=== PATIENT | male | born 1980 | race Caucasian/White ===

== ENCOUNTER 2018-09-13 02:57 | Inpatient (IN) ==
[2018-09-13] MEDS ORDERED: Naloxone Inj 0.4 MG/ML Vial ONE (03:14)
[2018-09-13] MEDS ORDERED: Naloxone Inj 2 MG/2 ML Vial ONE (03:18)
--- NOTE | 2018-09-13 03:26 | ED ---
HPI General Chief Complaint: Overdose Stated Complaint: Medical Time Seen by Provider: 09/13/18 03:22 Source: EMS Mode of arrival: EMS Limitations: altered mental status History of Present Illness HPI Narrative: 38-year-old male came to the emergency room brought in by EMS after he was found in his car unresponsive outside a gas station. He had a rolled dollar bill and some powder substance laying around him and over his face. Patient was GCS of 3 and was blue. He was given 2 mg of IV Narcan which brought him up to GCS of 12. As per the paramedics the oxygen saturation was 60 % initially. When brought in patient had his eyes open but not talking much. As per the commercial center manager he was nonverbal the entire transportation. The substance snorted is unknown at this point. Patient is not a reliable historian. Related Data Home Medications Medication Instructions Recorded Confirmed Unable to Obtain Home Meds 09/13/18 09/13/18 Allergies Allergy/AdvReac Type Severity Reaction Status Date / Time No Known Allergies Allergy Verified 09/13/18 03:04 Review of Systems ROS Unobtainable ROS Unobtainable: unobtainable due to mental status PMFSH History History Provided By: Trench Pipe Layer Helper / EMT Medical History Medical History Medical history unknown (Acute) Social History Social History Substance History: Active Abuse Second Hand Smoke Exposure: Yes Smoking Status: Current every day smoker Tobacco Type: Cigarettes How Often Do You Have a Drink Containing Alcohol: Monthly or less Recent Travel in [facility] within the Last 8 Weeks: No Recent Out of Country Travel within the Last 8 Weeks: No Exam Narrative Exam Narrative: GENERAL: Altered mental status, covered intact to, disheveled SKIN: Focused skin assessment warm/dry. Covered in tattoo, disheveled HEAD: Atraumatic. Normocephalic. EYES: Pupils equal and round. No scleral icterus. No injection or drainage. ENT: No nasal bleeding or discharge. Mucous membranes pink and moist. NECK: Trachea midline. No JVD. CARDIOVASCULAR: Regular rate and rhythm. No murmur appreciated. RESPIRATORY: No accessory muscle use. Clear to auscultation. Breath sounds equal bilaterally. GASTROINTESTINAL: Abdomen soft, non-tender, nondistended. Hepatic and splenic margins not palpable. MUSCULOSKELETAL: No obvious deformities. No clubbing. No cyanosis. No edema. NEUROLOGICAL: GCS of 12, nonverbal PSYCHIATRIC: Unable to assess Course Initial Documented Vital Signs Temperature 98.5 F 09/13/18 03:05 Pulse Rate 128 H 09/13/18 03:05 Respiratory Rate 22 09/13/18 03:05 Blood Pressure 118/81 09/13/18 03:05 Pulse Oximetry 99 09/13/18 03:05 Last Documented Vital Signs Temperature 98.5 F 09/13/18 03:05 Pulse Rate 132 H 09/13/18 03:09 Respiratory Rate 18 09/13/18 03:09 Blood Pressure 118/81 09/13/18 03:09 Pulse Oximetry 100 09/13/18 03:27 Critical Care Time Critical Care Time: Yes Total Critical Care Time: 45 Attestation: Aggregate critical care time was 45 minutes. Time to perform other separately billable procedures was not included in the critical care time. My time did not include minutes spent treating any other patients simultaneously or on activities that did not directly contribute to the patient's treatment. The services I provided to this patient were to treat and/or prevent clinically significant deterioration that could result in: Altered mental status, metabolic acidosis, leukocytosis, heroin overdose I provided critical care services requiring my management, as noted below: Chart data review, documentation time, medication orders and management, vital sign assessments/reviewing monitor data, ordering and reviewing lab tests, ordering and interpreting/reviewing x-rays and diagnostic studies, care of the patient and discussion of the patient with the admitting physicians. Medical Decision Making MDM Narrative Medical decision making narrative: 4:19 AM patient was given 1 mg of Narcan IV in the ER. After that he started to have some shakes and GCS went up to 13. Patient continued after that to be lethargic and still nonverbal. I asked for an ABG. After reviewing the ABG I went back and spoke with him. After asking him questions repeatedly patient finally started to talk and said that he does not remember much or how he got to the gas station. He did not remember the day but knows that it is September in 2019. He says that the last thing he remembers was getting paid Saturday afternoon and then going to get heroin. This was at 1:30 PM. He does not remember anything since then. He says that last time he used heroin was a long time back. Last time he IV drug abuse was a long time back as well. Blood gas was metabolic acidosis but patient says that he did not do any other drugs. He drank 1 pint of vodka. Initially I had decided to intubate him given his GCS but once he started to talk and answer questions I decided to hold off on that. He is maintaining his airway.. Medical Screen Exam Complete: Yes Emergency Medical Condition: Yes Lab Data Result diagrams: 09/13/18 03:45 09/13/18 03:45 Lab Results 09/13/18 09/13/18 09/13/18 Range/Units 03:45 03:45 03:45 WBC 24.4 H (4.0-11.0) th/mm3 RBC 4.91 (4.50-5.90) mil/mm3 Hgb 15.3 (13.0-17.0) gm/dL Hct 45.7 (39.0-51.0) % MCV 93.1 (80.0-100.0) fL MCH 31.1 (27.0-34.0) pg MCHC 33.4 (32.0-36.0) % RDW 14.0 (11.6-17.2) % Plt Count 179 (150-450) th/mm3 MPV 11.1 H (7.0-11.0) fL Neut % (Auto) 82.3 H (16.0-70.0) % Lymph % (Auto) 13.3 (9.0-44.0) % Morrow % (Auto) 4.0 (0.0-8.0) % Eos % (Auto) 0.1 (0.0-4.0) % Baso % (Auto) 0.3 (0.0-2.0) % Neut # (Auto) 20.0 H (1.8-7.7) th/mm3 Lymph # (Auto) 3.2 (1.0-4.8) th/mm3 Morrow # (Auto) 1.0 H (0.0-0.9) th/mm3 Eos # (Auto) 0.0 (0.0-0.4) th/mm3 Baso # (Auto) 0.1 (0.0-0.2) th/mm3 WBC Differential . Differential Comment Auto diff final Puncture Site Right radial Patient Temperature 98.6 O2 Saturation 92 (90-100) % ABG pH 7.22 L* (7.380-7.420) ABG pCO2 35 L (38-42) mmHg ABG pO2 113 (61-120) mmHg ABG HCO3 14 L* (22-26) mmol/L ABG O2 Content 19.2 (12.0-20.0) Vol % ABG Base Excess -12.3 L (-2-2) mmol/L ABG Methemoglobin 0.8 (0-2) % Hair Test Present Hemoglobin 14.7 (12.0-16.0) G/DL Carboxyhemoglobin 5.2 H* (0-4) % O2 Delivery Device Nasal cannula Liter Flow 3.00 L/M Critical Value Yes Sodium 146 H (136-145) meq/L Potassium 4.4 (3.5-5.1) meq/L Chloride 109 H (98-107) meq/L Carbon Dioxide 21.6 (21.0-32.0) meq/L Anion Gap 15 (5-15) meq/L BUN 10 (7-18) mg/dL Creatinine 1.95 H (0.60-1.30) mg/dL Estimated GFR 38 L (>89) mL/min Random Glucose 130 H (74-106) mg/dL Calcium 8.1 L (8.5-10.1) mg/dL Total Bilirubin 0.3 (0.2-1.0) mg/dL AST 916 H (15-37) U/L ALT 506 H (12-78) U/L Alkaline Phosphatase 94 (45-117) U/L Troponin I Less than 0.02 L (0.02-0.05) ng/mL Total Protein 7.6 (6.4-8.2) g/dL Albumin 3.6 (3.4-5.0) g/dL Serum Alcohol 40 H (0-5) mg/dL Imaging Data Radiologist's impression: Head CT 09/13/18 03:27 CONCLUSION: No acute intracranial abnormality is identified. . ECG Data Attestation: I personally reviewed and interpreted this ECG as follows: Interpretation: Twelve-lead EKG was reviewed by me. Normal sinus rhythm, normal axis, tachycardia, interventricular conduction delay. Heart rate of 137 bpm. Discharge Plan Discharge Disposition Patient Disposition: ED Admit(ED Internal Use Only) Discharge Order Discharge Orders: ED Use Only Admit Order (Routine); Ordered 09/13/18 Ordered By: Shravanti Tena Physicians Team ED Provider: Giovany Madsen Primary Care Provider: Primary Care Ana Hightower Attending Provider: Claudio Zuleta Discharge Interventions Interventions: Vital Signs Last Done: 09/13/18 03:09 Status ED Status: Admitted Patient
[2018-09-13] MEDS ORDERED: Sod Chloride 0.9% Inj 1,000 ML IV.SIG ONE (03:27)
[2018-09-13 04:09] LABS: ABG Base Excess -12.3 mmol/L (-2-2); ABG PCO2 35 mmHg (38-42); ABG PO2 113 mmHg (61-120)
[2018-09-13 04:13] LABS: Baso # (Auto) 0.1 th/mm3 (0.0-0.2); Baso % (Auto) 0.3 % (0.0-2.0); Eos % (Auto) 0.1 % (0.0-4.0); Hematocrit 45.7 % (39.0-51.0); Hemoglobin 15.3 gm/dL (13.0-17.0); Lymph # (Auto) 3.2 th/mm3 (1.0-4.8); Lymph % (Auto) 13.3 % (9.0-44.0); Mean Corpuscular HGB Conc 33.4 % (32.0-36.0); Mean Corpuscular Hemoglobin 31.1 pg (27.0-34.0); Mean Corpuscular Volume 93.1 fL (80.0-100.0); Mean Platelet Volume 11.1 fL (7.0-11.0); Neut % (Auto) 82.3 % (16.0-70.0); Platelet Count 179 th/mm3 (150-450); Red Blood Count 4.91 mil/mm3 (4.50-5.90); White Blood Count 24.4 th/mm3 (4.0-11.0)
[2018-09-13] MEDS ORDERED: Temazepam 15 MG Capsule PO PRN (04:35)
[2018-09-13] MEDS ORDERED: Bisacodyl 10 MG Supp RECTAL PRN (04:35)
--- NOTE | 2018-09-13 04:38 | P.HPCC ---
History of Present Illness Primary Care Physician: No Primary Care Physician History of Present Illness: 38-year-old male came to the emergency room brought in by EMS after he was found in his car unresponsive outside a gas station. He had a rolled dollar bill and some powder substance laying around him and over his face. Patient was GCS of 3 and was blue. He was given 2 mg of IV Narcan which brought him up to GCS of 12. As per the paramedics the oxygen saturation was 60% initially. When brought in patient had his eyes open but not talking much. As per the real property evaluator he was nonverbal the entire transportation. The substance snorted is unknown at this point. Patient is not a reliable historian. Review of Systems All other systems reviewed negative except as stated in HPI, unobtainable due to mental condition PMFSH - History History Provided By: Kayak Maker / EMT - Medical History Medical History: Medical History (Last Updated 09/13/18 @ 03:08 by Raissa Anderson) Medical history unknown - Tobacco History Second Hand Smoke Exposure: Yes Tobacco Use In Past 30 Days: Yes Smoking Status: Current every day smoker Tobacco Type: Cigarettes - Alcohol History How Often Do You Have a Drink Containing Alcohol: Monthly or less - Substance Use History Substance History: Active Abuse - Substance Use Type Heroin Status: Active Route Used: Inhalation Reason for Use: Calm Down - Travel History Recent Travel in the [place] Within the Last 8 Weeks: No Recent Travel Out of the Country Within the Last 8 Weeks: No - Immunization History Tetanus Immunization: Unsure Medications and Allergies Active Medications: Active Medications Sodium Chloride (Ns Flush) 2 ml IV.FLUSH PRN PRN PRN Reason: FLUSH AFTER USING IV ACCESS Allergies Allergy/AdvReac Type Severity Reaction Status Date / Time No Known Allergies Allergy Verified 09/13/18 03:04 Home Medications Medication Instructions Recorded Confirmed Type Unable to Obtain Home Meds 09/13/18 09/13/18 History Results - Labs CBC & Chem 7: 09/13/18 03:45 09/13/18 03:45 Labs: Short CBC 09/13/18 Range/Units 03:45 WBC 24.4 H (4.0-11.0) th/mm3 Hgb 15.3 (13.0-17.0) gm/dL Hct 45.7 (39.0-51.0) % Plt Count 179 (150-450) th/mm3 Exam Vital signs: Vital Signs 09/13/18 03:05 09/13/18 03:09 Temperature 98.5 F Pulse Rate 128 H 132 H Respiratory Rate 22 18 Blood Pressure 118/81 118/81 Pulse Oximetry 99 Intake & Output 09/12/18 09/12/18 09/13/18 06:59 18:59 06:59 Weight 90.718 kg - Constitutional no acute distress - Routine HEENT Exam Head: Present: normocephalic, atraumatic Eye: Present: PERRL ENT: Present: mucous membranes moist - Routine Neck Exam Present: supple, full ROM. Absent: JVD, carotid bruit - Routine Respiratory Exam Absent: accessory muscle use, wheezes, crackles - Routine Cardiovascular Exam Present: RRR, S1, S2 - Routine Abdominal Exam Present: soft, normoactive bowel sounds - Routine Extremities Exam Absent: cyanosis, clubbing, edema - Routine Skin Exam Present: intact. Absent: cyanosis, erythema - Routine Neurological Exam Present: alert, altered mental status, moving all extremities Septic Shock Reassessment Septic shock perfusion: reassessment completed Caprini VTE Risk Assessment Caprini VTE Risk Assessment: Moderate/High Risk (score >= 2) Caprini Risk Assessment Model: Point Value = 1 Point Value = 2 Point Value = 3 Point Value = 5 Age 41-60 Minor surgery BMI > 25 kg/m2 Swollen legs Varicose veins or History of unexplained or recurrent spontaneous Oral contraceptives or hormone replacement Sepsis (< 1 month) Serious lung disease, including pneumonia (< 1 month) Abnormal pulmonary function Acute myocardial infarction Congestive heart failure (< 1 month) History of inflammatory bowel disease Medical patient at bed rest Age 61-74 Arthroscopic surgery Major open surgery (> 45 min) Laparoscopic surgery (> 45 min) Malignancy Confined to bed (> 72 hours) Immobilizing plaster cast Central venous access Age >= 75 History of VTE Family history of VTE Factor V Leiden Prothrombin [id number] Lupus anticoagulant Anticardiolipin antibodies Elevated serum homocysteine Heparin-induced thrombocytopenia Other congenital or acquired thrombophilia Stroke (< 1 month) Elective arthroplasty Hip, pelvis, or leg fracture Acute spinal cord injury (< 1 month) Prophylaxis Regimen: Total Risk Factor Score Risk Level Prophylaxis Regimen 0-1 Low Early ambulation 2 Moderate Order ONE of the following: *Sequential Compression Device (SCD) *Heparin 5000 units SQ BID 3-4 Higher Order ONE of the following medications: *Heparin 5000 units SQ TID *Enoxaparin/Lovenox 40 mg SQ daily (WT < 150 kg, CrCl > 30 mL/min) *Enoxaparin/Lovenox 30 mg SQ daily (WT < 150 kg, CrCl > 10-29 mL/min) *Enoxaparin/Lovenox 30 mg SQ BID (WT < 150 kg, CrCl > 30 mL/min) AND/OR *Sequential Compression Device (SCD) 5 or more Highest Order ONE of the following medications: *Heparin 5000 units SQ TID (Preferred with Epidurals) *Enoxaparin/Lovenox 40 mg SQ daily (WT < 150 kg, CrCl > 30 mL/min) *Enoxaparin/Lovenox 30 mg SQ daily (WT < 150 kg, CrCl > 10-29 mL/min) *Enoxaparin/Lovenox 30 mg SQ BID (WT < 150 kg, CrCl > 30 mL/min) AND *Sequential Compression Device (SCD) Assessment and Plan - Assessment and Plan Plan: Altered mental status -Heroin intoxication -Improving mentation -Admit to ICU -Neurochecks per unit protocol -Monitor and airway protection -Monitor for withdrawal Metabolic acidosis -Non-anion gap -Some alcohol intoxication -Dehydration -Lactic acid pending -IV fluid hydration Acute kidney injury -Severe dehydration -IV fluid replacement -Strict I's and O's -Monitor electrolytes and creatinine level Transaminitis -Monitor trend -Likely hypotensive and hypoxemic event -Hepatitis panel DVT GI prophylaxis -Teds SCDs -Subcu heparin -Pepcid Level 2
[2018-09-13 04:46] LABS: Alanine Aminotransferase 506 U/L (12-78); Albumin 3.6 g/dL (3.4-5.0); Alkaline Phosphatase 94 U/L (45-117); Anion Gap 15 meq/L (5-15); Aspartate Aminotransferase 916 U/L (15-37); Blood Urea Nitrogen 10 mg/dL (7-18); Calcium 8.1 mg/dL (8.5-10.1); Carbon Dioxide 21.6 meq/L (21.0-32.0); Chloride 109 meq/L (98-107); Glomerular Filtration Rate 38 mL/min (>89); Glucose,Random 130 mg/dL (74-106); Potassium 4.4 meq/L (3.5-5.1); Sodium 146 meq/L (136-145); Total Protein 7.6 g/dL (6.4-8.2)
[2018-09-13 04:47] LABS: Alcohol 40 mg/dL (0-5)
[2018-09-13] MEDS ORDERED: Sod Chloride 0.9% Inj 1,000 ML IV.SIG SCH ×2 (05:00→06:30)
[2018-09-13] MEDS: Sod Chloride 0.9% Inj 1,000 ML IV.CONT SCH ×4 (05:00→21:34)
--- NOTE | 2018-09-13 05:16 | CT ---
EXAM DATE: 09/13/2018 4:54 AM EST AGE/SEX: 38 years / Male INDICATIONS: Altered mental status; possible overdose. CLINICAL DATA: This is the patient's initial encounter. Patient reports that signs and symptoms have been present for 1 day and indicates a pain score of Nonresponsive. MEDICAL/SURGICAL HISTORY: None. None. RADIATION DOSE: 56.35 CTDI (mGy) COMPARISON: No prior exams available for comparison. TECHNIQUE: CT of the head without contrast. Using automated exposure control and adjustment of the mA and/or kV according to patient size, radiation dose was kept as low as reasonably achievable to ob tain optimal diagnostic quality images. DICOM format image data is available electronically for revi ew and comparison. FINDINGS: Cerebrum: The ventricles are normal. No midline shift, mass lesion, hemorrhage or acute infarction. No extraaxial fluid collections are seen. Posterior Fossa: The cerebellum and brainstem demonstrate no acute abnormality. The 4th ventricle is midline. The cerebellopontine angle is within normal limits. Extracranial: The visualized sinuses are clear. Skull: The calvaria is intact. No skull fracture. CONCLUSION: No acute intracranial abnormality is identified. . Electronically signed by: Chino Gardner MD Board Certified Radiologist 09/13/2018 5:15 AM EST
[2018-09-13] MEDS: Heparin - SQ 10,000 UNITS/ML Vial SQ SCH ×3 (05:30→20:10)
[2018-09-13 05:51] LABS: Troponin I 0.09 ng/mL (0.02-0.05)
[2018-09-13 06:04] LABS: CKMB Percent 1.6 % (0.0-4.0); Creatine Kinase MB 8.8 ng/mL (0.5-3.6)
[2018-09-13] MEDS ORDERED: Vancomycin Inj 1,000 MG in Sodium Chlor 0.9% Inj 250 ML IV.SIG ONE (06:18)
[2018-09-13] MEDS ORDERED: Naloxone Inj 0.4 MG/ML Vial IV.PUSH ONE (06:23)
[2018-09-13] MEDS ORDERED: Naloxone Inj 2 MG/2 ML Vial IV.PUSH ONE (06:24)
[2018-09-13] MEDS ORDERED: Piperacil/Tazo 4.5 GM Premix 4.5 GM/100 ML BAG IV.SIG SCH (06:30)
[2018-09-13] MEDS: Senna/Docusate Sodium 8.6/50 MG Tablet PO SCH ×2 (11:05→20:09)
[2018-09-13] MEDS: Famotidine PF Inj 20 MG/2 ML Vial IV.PUSH SCH ×2 (11:05→20:09)
[2018-09-13 13:21] LABS: Hepatitis A IgM Antibody Nonreactive (Nonreactive)
[2018-09-13 13:22] LABS: Hepatitits B Surface Antigen Nonreactive (Nonreactive)
[2018-09-13] MEDS ORDERED: Influenza (Quadrivalent) Vaccine 0.5 ML Syringe IM ONE (15:00)
[2018-09-13] MEDS: Acetaminophen 325 MG Tablet PO PRN (20:08)
[2018-09-14] MEDS: Sod Chloride 0.9% Inj 1,000 ML IV.CONT SCH ×4 (02:43→19:59)
[2018-09-14] MEDS ORDERED: Chlorhexidine Gluconate 2% 1 Pack (2 Cloths) TOPICAL PRN (04:00)
[2018-09-14] MEDS: Heparin - SQ 10,000 UNITS/ML Vial SQ SCH ×3 (04:03→20:00)
[2018-09-14] MEDS: Chlorhexidine Gluconate 2% 1 Pack (2 Cloths) TOPICAL SCH (04:03)
[2018-09-14 05:22] LABS: Baso % (Auto) 0.2 % (0.0-2.0); Eos % (Auto) 0.4 % (0.0-4.0); Hematocrit 36.7 % (39.0-51.0); Hemoglobin 12.5 gm/dL (13.0-17.0); Lymph # (Auto) 1.6 th/mm3 (1.0-4.8); Lymph % (Auto) 23.1 % (9.0-44.0); Mean Corpuscular Hemoglobin 31.1 pg (27.0-34.0); Mean Corpuscular Volume 91.3 fL (80.0-100.0); Mean Platelet Volume 10.7 fL (7.0-11.0); Mono # (Auto) 0.4 th/mm3 (0.0-0.9); Mono % (Auto) 5.4 % (0.0-8.0); Neut % (Auto) 70.9 % (16.0-70.0); Platelet Count 104 th/mm3 (150-450); Red Blood Count 4.01 mil/mm3 (4.50-5.90); Red Cell Distribution Width 13.7 % (11.6-17.2)
[2018-09-14 05:24] LABS: INR 1.1 Ratio; Prothrombin Time 11.5 sec (9.8-11.6)
[2018-09-14 05:57] LABS: Albumin 2.7 g/dL (3.4-5.0); Calcium 7.4 mg/dL (8.5-10.1); Carbon Dioxide 23.5 meq/L (21.0-32.0); Phosphorus 1.9 mg/dL (2.5-4.9); Potassium 3.2 meq/L (3.5-5.1); Total Protein 5.4 g/dL (6.4-8.2)
[2018-09-14] MEDS: Acetaminophen 325 MG Tablet PO PRN (08:40)
[2018-09-14] MEDS: Famotidine PF Inj 20 MG/2 ML Vial IV.PUSH SCH ×2 (08:40→20:00)
[2018-09-14] MEDS: Senna/Docusate Sodium 8.6/50 MG Tablet PO SCH ×2 (08:44→20:01)
--- NOTE | 2018-09-14 10:52 | P.PNIM ---
Subjective Interval history: Discussed with RN. Patient still requires simple mask for hypoxemia. He reports nasal congestion otherwise he is feeling okay. Physical Exam Vital signs: Vital Signs 09/13/18 11:00 09/13/18 11:57 09/13/18 12:00 Temperature Pulse Rate 83 79 80 Respiratory Rate 11 L 19 Blood Pressure 112/67 109/58 L Pulse Oximetry 94 L 96 09/13/18 13:00 09/13/18 13:01 09/13/18 14:00 Temperature Pulse Rate 81 80 83 Respiratory Rate 18 21 21 Blood Pressure 102/50 L 102/60 Pulse Oximetry 90 L 88 L 96 09/13/18 15:00 09/13/18 15:47 09/13/18 16:00 Temperature 99 F Pulse Rate 80 81 88 Respiratory Rate 14 21 Blood Pressure 118/68 109/59 L Pulse Oximetry 95 81 L 09/13/18 16:54 09/13/18 17:00 09/13/18 17:54 Temperature Pulse Rate 81 83 81 Respiratory Rate 17 Blood Pressure 112/67 Pulse Oximetry 09/13/18 18:00 09/13/18 19:00 09/13/18 20:00 Temperature Pulse Rate 82 84 87 Respiratory Rate 17 15 15 Blood Pressure 120/70 111/62 114/57 L Pulse Oximetry 86 L 92 L 95 09/13/18 21:00 09/13/18 22:00 09/13/18 23:00 Temperature Pulse Rate 79 77 80 Respiratory Rate 24 21 13 Blood Pressure 119/63 120/67 111/57 L Pulse Oximetry 90 L 84 L 94 L 09/14/18 00:00 09/14/18 01:00 09/14/18 02:00 Temperature Pulse Rate 68 74 72 Respiratory Rate 16 18 11 L Blood Pressure 107/53 L 98/48 L 121/62 Pulse Oximetry 92 L 93 L 93 L 09/14/18 03:00 09/14/18 03:47 09/14/18 04:00 Temperature Pulse Rate 69 79 Respiratory Rate 19 19 Blood Pressure 125/63 Pulse Oximetry 92 L 95 94 L 09/14/18 05:00 09/14/18 06:00 09/14/18 07:00 Temperature Pulse Rate 72 74 75 Respiratory Rate 14 18 16 Blood Pressure 116/63 124/73 130/72 Pulse Oximetry 93 L 91 L 94 L 09/14/18 08:00 09/14/18 08:42 09/14/18 09:00 Temperature 99.1 F Pulse Rate 79 73 Respiratory Rate 19 22 Blood Pressure 118/56 L 156/81 H Pulse Oximetry 92 L 94 L 96 09/14/18 10:00 Temperature Pulse Rate 75 Respiratory Rate Blood Pressure Pulse Oximetry Intake & Output 09/13/18 09/14/18 09/14/18 18:59 06:59 18:59 Intake Total 1650 / 1650 2600 / 2600 1000 / 1000 Output Total 450 / 450 1350 / 1350 Balance 1200 / 1200 1250 / 1250 1000 / 1000 Weight 113 kg Intake: IV 1000 / 1000 1999 / 1999 1000 / 1000 NS Inj 1,000 ML @ 184 mls/hr IV 1000 / 1000 1999 / 1999 1000 / 1000 .CONT .[id number] TYLER Rx#:[id number] Oral 650 / 650 600 / 600 Output: Urine 450 / 450 1350 / 1350 Other: # Voids 2 Date of Last Bowel Movement 09/12/18 # Bowel Movements 0 Narrative: GENERAL: This is a well-nourished, well-developed patient, in no apparent distress. ENT: Bilateral turbinates inflamed. CARDIOVASCULAR: Normal rate and regular rhythm without murmurs, gallops, or rubs. RESPIRATORY: Good respiratory efforts. Breath sounds equal and clear to auscultation bilaterally. GASTROINTESTINAL: Abdomen soft, non-tender, non-distended. Normal active bowel sounds MUSCULOSKELETAL: Extremities without cyanosis, or edema. NEURO: Alert & Oriented x4 to person, place, time, situation. Moves all ext x4 PSYCH: Appropriate mood and affect. Results Labs CBC & Chem 7: 09/14/18 04:47 09/14/18 04:47 Assessment and Plan Plan 38-year-old male admitted with apparent opiate overdose. Patient also positive for alcohol. Patient was found in his car with a GCS of 3. He was given Narcan with good response. Initial oxygen saturation was in the 60s. Accidental opiate overdose: - Patient using illicit drugs and obviously had a near experience. - He was extensively counseled on cessation of illicit drug use. - Mental status is improving and is at baseline. Hypoxemia: - Could be related to lung injury from illicit drug use. -Check x-ray of the chest. -Continue supplemental oxygen -Flonase to help with nasal congestion Transaminitis: - Likely secondary to hypoxemic event. -Repeat levels in a.m. AK I: - Resolved with IV fluid Hypokalemia: Replace and monitor. GI prophylaxis: Pepcid. Stool softener PRN constipation. DVT PPx: Heparin Okay to transfer to medical floor once weaned down to nasal cannula. Anticipate discharge in the next 24-48 hours Progress Note: Quality VTE Deep Vein Thrombosis/Pulmonary Embolism Present on Admission: No
--- NOTE | 2018-09-14 14:39 | XR ---
EXAM DATE: 09/14/2018 2:31 PM EST AGE/SEX: 38 years / Male INDICATIONS: Shortness of breath. CLINICAL DATA: This is the patient's initial encounter. Patient reports that signs and symptoms have been present for 2 days and indicates a pain score of 0/10. MEDICAL/SURGICAL HISTORY: None. None. COMPARISON: No prior exams available for comparison. FINDINGS: A single AP view of the chest demonstrates the lungs to be symmetrically aerated without evidence of mass, infiltrate or effusion. The cardiomediastinal contours are unremarkable. Osseous structures a re intact. CONCLUSION: No acute cardiopulmonary process. Electronically signed by: Felix Hudson MD Board Certified Radiologist 09/14/2018 2:38 PM EST
[2018-09-14] MEDS ORDERED: LORazepam 1 MG Tablet PO ONE (22:03)
[2018-09-14 23:01] LABS: Troponin I 0.09 ng/mL (0.02-0.05)
[2018-09-14 23:13] LABS: CKMB Percent 0.8 % (0.0-4.0); Creatine Kinase MB 2.9 ng/mL (0.5-3.6)
[2018-09-15] MEDS: Chlorhexidine Gluconate 2% 1 Pack (2 Cloths) TOPICAL SCH (04:15)
[2018-09-15] MEDS: Sod Chloride 0.9% Inj 1,000 ML IV.CONT SCH (04:51)
[2018-09-15] MEDS: Heparin - SQ 10,000 UNITS/ML Vial SQ SCH ×2 (04:52→14:19)
[2018-09-15 07:15] LABS: Hematocrit 38.5 % (39.0-51.0); Hemoglobin 13.6 gm/dL (13.0-17.0); Mean Corpuscular HGB Conc 35.3 % (32.0-36.0); Mean Corpuscular Hemoglobin 31.3 pg (27.0-34.0); Mean Corpuscular Volume 88.5 fL (80.0-100.0); Mean Platelet Volume 11.5 fL (7.0-11.0); Platelet Count 114 th/mm3 (150-450); Red Blood Count 4.35 mil/mm3 (4.50-5.90); Red Cell Distribution Width 13.5 % (11.6-17.2); White Blood Count 6.2 th/mm3 (4.0-11.0)
[2018-09-15 07:42] LABS: Anion Gap 7 meq/L (5-15); Aspartate Aminotransferase 652 U/L (15-37); Blood Urea Nitrogen 4 mg/dL (7-18); Calcium 8.2 mg/dL (8.5-10.1); Carbon Dioxide 26.3 meq/L (21.0-32.0); Chloride 110 meq/L (98-107); Glomerular Filtration Rate Greater Than 89 mL/min (>89); Glucose,Random 82 mg/dL (74-106); Potassium 3.1 meq/L (3.5-5.1); Sodium 143 meq/L (136-145)
[2018-09-15 07:44] LABS: Alanine Aminotransferase 962 U/L (12-78)
[2018-09-15 07:45] LABS: Alkaline Phosphatase 69 U/L (45-117); Total Protein 5.9 g/dL (6.4-8.2)
[2018-09-15] MEDS: Famotidine PF Inj 20 MG/2 ML Vial IV.PUSH SCH (09:55)
[2018-09-15] MEDS: Senna/Docusate Sodium 8.6/50 MG Tablet PO SCH (09:55)
--- NOTE | 2018-09-15 14:57 | P.DS ---
DS: Providers Date of admission: 09/13/18 04:35 Primary care physician: No Primary Care Physician Consults: 09/13/18 17:32 Consult to Hospitalist Routine Consulting Provider: Titi Zamora Reason for Consultation: Heroin overdose Notified:: Service Spoke with:: ASHLEIGH Date Notified:: 09/13/18 Time Notified:: 17:36 Ordering Provider: NIDIA Brief History from admission: HPI as documented by the admitting physician: 38-year-old male came to the emergency room brought in by EMS after he was found in his car unresponsive outside a gas station. He had a rolled dollar bill and some powder substance laying around him and over his face. Patient was GCS of 3 and was blue. He was given 2 mg of IV Narcan which brought him up to GCS of 12. As per the paramedics the oxygen saturation was 60% initially. When brought in patient had his eyes open but not talking much. As per the press leader he was nonverbal the entire transportation. The substance snorted is unknown at this point. Patient is not a reliable historian. Patient update on day of discharge: Patient reports he is feeling well today. He was weaned off nasal cannula. His blood pressure is elevated. He reports a history of hypertension but has not been taking any medications. We discussed the need to follow-up with PCP. DS: Summary 38-year-old male admitted with apparent opiate overdose. Patient also positive for alcohol. Patient was found in his car with a GCS of 3. He was given Narcan with good response. Initial oxygen saturation was in the 60s. Evaluation and treatment course detailed below: Accidental opiate overdose: - Patient using illicit drugs and obviously had a near experience. - He was extensively counseled on cessation of illicit drug use. - Mental status is improved and at baseline. He was advised to seek outpatient rehabilitation. Hypoxemia: - Could be related to lung injury from illicit drug use. -x-ray of the chest normal. -Patient weaned off oxygen Transaminitis: - Likely shock liver secondary to hypoxemic event. -Repeat levels downtrending. Patient advised to follow-up with PCP AK I: - Resolved with IV fluid Hypokalemia: Replaced. Hypertension: Untreated. Medicine patient was started on low-dose amlodipine and advised to follow-up with PCP for further blood pressure monitoring and treatment as needed. Time Spent with Patient Total time spent providing and/or coordinating discharge services: Quality: VTE Deep Vein Thrombosis/Pulmonary Embolism Present on Admission: No Exam Narrative Exam Narrative: GENERAL: This is a well-nourished, well-developed patient, in no apparent distress. CARDIOVASCULAR: Normal rate and regular rhythm without murmurs, gallops, or rubs. RESPIRATORY: Good respiratory efforts. Breath sounds equal and clear to auscultation bilaterally. GASTROINTESTINAL: Abdomen soft, non-tender, non-distended. Normal active bowel sounds MUSCULOSKELETAL: Extremities without cyanosis, or edema. NEURO: Alert & Oriented x4 to person, place, time, situation. Moves all ext x4 PSYCH: Appropriate mood and affect. Results Labs on day of discharge: Labs from last 24 hours 09/15/18 09/15/18 09/14/18 06:07 06:07 22:27 WBC 6.2 RBC 4.35 L Hgb 13.6 Hct 38.5 L MCV 88.5 MCH 31.3 MCHC 35.3 RDW 13.5 Plt Count 114 L MPV 11.5 H Sodium 143 Potassium 3.1 L Chloride 110 H Carbon Dioxide 26.3 Anion Gap 7 BUN 4 L Creatinine 0.85 Estimated GFR Greater than 89 POC Glucose Random Glucose 82 Calcium 8.2 L D Total Bilirubin 0.9 Direct Bilirubin 0.2 Indirect Bilirubin 0.7 AST 652 H ALT 962 H Alkaline Phosphatase 69 Total Creatine Kinase 354 H CK-MB (CK-2) 2.9 CK-MB (CK-2) % 0.8 Troponin I 0.09 H Total Protein 5.9 L Albumin 3.0 L 09/14/18 20:14 WBC RBC Hgb Hct MCV MCH MCHC RDW Plt Count MPV Sodium Potassium Chloride Carbon Dioxide Anion Gap BUN Creatinine Estimated GFR POC Glucose 118 H Random Glucose Calcium Total Bilirubin Direct Bilirubin Indirect Bilirubin AST ALT Alkaline Phosphatase Total Creatine Kinase CK-MB (CK-2) CK-MB (CK-2) % Troponin I Total Protein Albumin Preliminary micro results at discharge 09/13/18 05:00 Aerobic Blood Culture - Preliminary Blood - Peripheral No growth in 2 days Anaerobic Blood Culture - Preliminary No growth in 2 days 09/13/18 04:50 Aerobic Blood Culture - Preliminary Blood - Peripheral No growth in 2 days Anaerobic Blood Culture - Preliminary No growth in 2 days Impressions ITS Impressions Head CT 09/13/18 03:27 CONCLUSION: No acute intracranial abnormality is identified. . Chest X-Ray 09/14/18 00:00 CONCLUSION: No acute cardiopulmonary process. Discharge Plan Discharge Disposition Patient Disposition: Discharge Home Discharge Condition Condition: Stable Discharge Order Discharge Orders: Discharge Order (Routine); Ordered 09/15/18 Ordered By: Sandi Webb Physicians Team Primary Care Provider: Primary Ana Khalil Attending Provider: Sandi Webb Rxs /Orders / Referrals /Forms Prescriptions: New amlodipine 5 mg tablet 5 mg PO DAILY Qty: 30 RF: 0 No Action Unable to Obtain Home Meds RF: 0 Referrals: Primary Care Ana Hightower [Primary Care Provider] - See Instructions Discharge Instructions Patient Printed Instructions: Amlodipine (By mouth) Post Discharge Care Plan Care Plan Goals: Your Health Problems: Goals to Promote Your Health: * To prevent worsening of your condition * To maintain your health at the optimal level Directions to Meet Your Goals: * Take your medications as prescribed * Follow your dietary instruction * Follow activity as directed * Keep your appointments as scheduled * Take your immunizations and boosters as scheduled * If your symptoms worsen call your PCP * If no PCP go to Urgent Care or Emergency Room Smoking is dangerous to your health. Avoid second hand smoke. You may reach the 24-hour crisis hotline for domestic abuse at . Status ED Status: Left Department Discharge Information Discharge Date/Time: 09/15/18 16:52
[2018-09-15] MEDS ORDERED: amLODIPine 5 MG Tablet PO ONE (16:13)
--- NOTE | 2018-09-15 23:23 | ECG ---
Date Performed: 09/14/2018 Time Performed: 22:18:42 PTAGE: 38 years EKG: Sinus rhythm MINIMAL VOLTAGE CRITERIA FOR LVH, CONSIDER NORMAL VARIANT BORDERLINE ECG PREVIOUS TRACING : 09/13/2018 05.26 DOCTOR: Mushtaq Randall Interpretating Date/Time 09/15/2018 23:22:35
--- NOTE | 2018-09-15 23:43 | ECG ---
Date Performed: 09/13/2018 Time Performed: 03:10:44 PTAGE: 38 years EKG: ATRIAL FIBRILLATION WITH RAPID VENTRICULAR RESPONSE MODERATE INTRAVENTRICULAR CONDUCTION DE LAY MODERATE ST DEPRESSION ABNORMAL ECG NO PREVIOUS TRACING DOCTOR: Mushtaq Randall Interpretating Date/Time 09/15/2018 23:41:56
--- NOTE | 2018-09-15 23:43 | ECG ---
Date Performed: 09/13/2018 Time Performed: 05:26:49 PTAGE: 38 years EKG: Sinus rhythm POSSIBLE LEFT VENTRICULAR HYPERTROPHY JUNCTIONAL ST DEPRESSION, CONSIDER NORMAL VARIANT ABNORMAL ECG PREVIOUS TRACING : 09/13/2018 03.10 DOCTOR: Mushtaq Randall Interpretating Date/Time 09/15/2018 23:41:14
== END 2018-09-15 16:52 | disposition home or self-care (01) | DRG 917 ==
LOC: NEPC 02:57 → NEDA 04:35 → HIMC 05:55 → N05 09-14 18:57
PROVIDERS: ADMIT Family Medicine; ATTEND Family Medicine
CPT/HCPCS: 36600; 70450; 71010; 71045; 80048; 80053; 80074; 80076; 80307; 82550; 82552; 82805; 82948; 82962; 83605; 83735; 84100; 84484; 85025; 85027; 85610; 85730; 87040; 90774; 90784; 93005; 96374; 99291; C8952; J1644; J2310; J2543; J3370; J7030; J7050